=== PATIENT | female | born 2000 | race African-American/Black ===

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

== ENCOUNTER 2021-01-26 16:44 | Emergency (ER) | payer MEDICAID ==
[~2021-01-26] VITALS: Ht 157.5 cm; Wt 90.0 kg
[~2021-01-26 16:44] MED LIST changes: +ONDA4TAB12 PO
[2021-01-26 17:03] VITALS: BP 136/84
[2021-01-26 17:51] LABS: BACTERIA,URINE FEW /HPF (0-FEW); BILIRUBIN,URINE NEG (NEG); CLARITY,URINE TURBID; COLOR,URINE YELLOW; GLUCOSE,URINE NEG (NEG); NITRITE,URINE NEG (NEG); SQUAMOUS EPITHELIAL CELL,UR FEW /LPF; UROBILINOGEN,URINE 0.2 mg/dL (0.2 mg/dL); WBC,URINE >40 /HPF (0-4)
[2021-01-26 17:52] LABS: YEAST,URINE PRESENT /HPF
[2021-01-26] MEDS ORDERED: CEPH500T PO (18:13)
[2021-01-26] MEDS ORDERED: PHEN-318 PO (18:13)
[2021-01-26] MEDS ORDERED: FLUC150T PO (18:13)
[2021-01-26] MEDS ORDERED: CEPHALEXIN 250 MG CAPSULE PO ONE (18:15)
--- NOTE | 2021-01-26 18:15 | PHYS DOC ---
Past History Past Medical History: Asthma Additional Past Medical Histor: LACTOSE INTOLERANT Past Surgical History: No Surgical History Alcohol Use: None General Adult EDM: Chief Complaint: ABDOMINAL PAIN HPI: HPI: Patient is a 21-year-old female who presents to the ER with suprapubic pain, dysuria, hematuria, urinary frequency. Patient denies nausea, vomiting, diarrhea, fevers. Patient has a history of asthma. Patient's vital signs are stable. No treatment prior to arrival. Review of Systems: Review of Systems: 14 body systems of the review of systems have been reviewed. See HPI for pertinent positive and negative responses, otherwise all other systems are negative, nonpertinent or noncontributory Allergies: Allergies: Allergies Coded Allergies Type Severity Reaction Last Updated Verified lactose Allergy Intermediate 12/22/20 Yes Physical Exam: PE: Constitutional: Well developed, well nourished, no acute distress, non-toxic appearance. [] HENT: Normocephalic, atraumatic, bilateral external ears normal, oropharynx moist, no oral exudates, nose normal. [] Eyes: PERRL, EOMI, conjunctiva normal, no discharge. [] Neck: Normal range of motion, no tenderness, supple, no stridor. [] Cardiovascular:Heart rate regular rhythm, no murmur [] Lungs & Thorax: Bilateral breath sounds clear to auscultation [] Abdomen: Bowel sounds normal, soft, no tenderness, no masses, no pulsatile masses. [] Skin: Warm, dry, no erythema, no rash. [] Back: No tenderness, no CVA tenderness. [] Extremities: No tenderness, no cyanosis, no clubbing, ROM intact, no edema. [] Neurologic: Alert and oriented X 3, normal motor function, normal sensory function, no focal deficits noted. [] Psychologic: Affect normal, judgement normal, mood normal. [] Current Patient Data: Labs: Laboratory Tests Test 01/26/21 17:18 Urine Collection Type Unknown Urine Color Yellow Urine Clarity Turbid Urine pH 6.5 Urine Specific [place] >=1.030 Urine Protein 100 mg/dl (NEG-TRACE) Urine Glucose (UA) Neg mg/dL (NEG) Urine Ketones (Stick) Neg mg/dL (NEG) Urine Blood Large (NEG) Urine Nitrite Neg (NEG) Urine Bilirubin Neg (NEG) Urine Urobilinogen Dipstick 0.2 mg/dL (0.2 mg/dL) Urine Leukocyte Esterase Large (NEG) Urine RBC 3-5 /HPF (0-2) Urine WBC >40 /HPF (0-4) Urine Squamous Epithelial Cells Few /LPF Urine Bacteria Few /HPF (0-FEW) Urine Yeast Present /HPF Vital Signs: Vital Signs Date Time Temp Pulse Resp B/P (MAP) Pulse Ox O2 Delivery O2 Flow Rate FiO2 01/26/21 17:03 98.9 84 12 136/84 (101) 100 Room Air EKG: EKG: [] Radiology/Procedures: Radiology/Procedures: [] Heart Score: C/O Chest Pain: No Risk Factors: Risk Factors: DM, Current or recent (<one month) smoker, HTN, HLP, family history of CAD, obesity. Risk Scores: Score 0 - 3: 2.5% MACE over next 6 weeks - Discharge Home Score 4 - 6: 20.3% MACE over next 6 weeks - Admit for Clinical Observation Score 7 - 10: 72.7% MACE over next 6 weeks - Early Invasive Strategies Course & Med Decision Making: Course & Med Decision Making Pertinent Labs and Imaging studies reviewed. (See chart for details) [] Patient is a 21-year-old female being seen in the ER for suprapubic pain, dysuria, hematuria and urinary frequency. Urinalysis showed a urinary tract infection. Patient was given first dose of antibiotic in the ER. She is discharged home with an antibiotic, Pyridium and Diflucan because she is noted to have a yeast. Patient vies follow-up primary care provider. Advised to increase fluids and avoid bladder irritants. I discussed with patient all findings and diagnostic testing as well as the need to follow-up with PCP for further evaluation and treatment or return to the ER if any new or worsening symptoms. Strict return precautions were also discussed at length. Patient voiced understanding and agreement with the plan. Patient is hemodynamically stable at the time of disposition. Tosin Disclaimer: Tosin Disclaimer: This electronic medical record was generated, in whole or in part, using a voice recognition dictation system. Departure Departure: Impression: Primary Impression: Urinary tract infection Qualified Codes: N30.01 - Acute cystitis with hematuria Disposition: HOME / SELF CARE / HOMELESS Condition: GOOD Referrals: GUILLERMO ZEPEDA (PCP) Patient Instructions: Urinary Tract Infection Additional Instructions: You were seen in the ER today for suprapubic pain with dysuria, hematuria and urinary frequency. Your urinalysis was positive for urinary tract infection. You are being discharged home with an antibiotic. You were given your first dose in the ER. You are also being sent home with a prescription for a medication to help with the bladder spasm pains. You are also noted to have a yeast infection. You will be treated with Diflucan. Increase your fluids. Avoid bladder irritants like sugary beverages, caffeine and alcohol. Follow-up with your primary care provider tomorrow regarding your ER visit. If you develop worsening of your belly pain, intractable nausea or vomiting, high fevers refractory to treatment please return to the ER. EMERGENCY DEPARTMENT GENERAL DISCHARGE INSTRUCTIONS Thank you for coming to [facility] (ED) today and trusting us with you care. We trust that you had a positivie experience in our Emergency Department. If you wish to speak to the department management, you may call the director at [phone]. YOUR FOLLOW UP INSTRUCTIONS ARE FOLLOWS: 1. Do you have a private Doctor? If you do not have a private doctor, please ask for a resource list of physicians or clinics that may be able to assist you with follow up care. 2. The Emergency Physician has interpreted your x-rays. The X-Ray specialist will also review them. If there is a change in the findings, you will be notified in 48 hours when at all possible. 3. A lab test or culture has been done, your results will be reviewed and you will be notified if you need a change in treatment. ADDITIONAL INSTRUCTIONS AND INFORMATION: 1. Your care today has been supervised by a physician who is specially trained in emergency care. Many problems require more than one evaluation for a complete diagnosis and treatment. We recommend that you schedule your follow up appointment as recommended to ensure complete treatment of you illness or injury. If you are unable to obtain follow up care and continue to have a problem, or if your condition worsens, we recommend that you return to the ED. 2. We are not able to safely determine your condition over the phone nor are we able to give sound medical advice over the phone. For these safety reasons, if you call for medical advice we will ask you to come to the ED for further evaluation. 3. If you have any questions regarding these discharge instructions please call the ED at [phone]. SAFETY INFORMATION: In the interest of safety, wellness, and injury prevention; we encourage you to wear your sealbelt, if you smoke; quite smoking, and we encourage family to use a protective helmet for bicycling and other sporting events that present an increased risk for head injury. IF YOUR SYMPTOMS WORSEN OR NEW SYMPTOMS DEVELOP, OR YOU HAVE CONCERNS ABOUT YOUR CONDITION; OR IF YOUR CONDITION WORSENS WHILE YOU ARE WAITING FOR YOUR FOLLOW UP APPOINTMENT; EITHER CONTACT YOUR PRIMARY CARE DOCTOR, THE PHYSICIAN WHOSE NAME AND NUMBER YOU WERE GIVEN, OR RETURN TO THE ED IMMEDIATELY. Scripts Fluconazole (DIFLUCAN) 150 Mg Tablet 1 TAB PO ONCE for YEAST INFECTION for 1 Day, #1 TAB 0 Refills Prov: JEREMÍAS HARRIS APRN 01/26/21 Phenazopyridine Hcl (PYRIDIUM) 200 Mg Tablet 1 TAB PO TID for urinary discomfort for 3 Days, #9 TAB 0 Refills Prov: JEREMÍAS HARRIS APRN 01/26/21 Cephalexin (CEPHALEXIN) 500 Mg Tablet 1 TAB PO BID for UTI for 7 Days, #14 TAB 0 Refills Prov: JEREMÍAS HARRIS APRN 01/26/21 JEREMÍAS HARRIS APRN Jan 26, 2021 18:15
== END 2021-01-26 18:25 | disposition home or self-care (01) ==
LOC: ER 16:44
DX: N30.01 Acute cystitis with hematuria (principal); J45.909 Unspecified asthma, uncomplicated; Z91.011 Allergy to milk products
CPT/HCPCS: 81001; 87077; 87086; 87186; 99283

== ENCOUNTER 2021-08-02 18:27 | Emergency (ER) | payer MEDICAID ==
[~2021-08-02] VITALS: Ht 154.9 cm; Wt 96.4 kg
[~2021-08-02 18:27] MED LIST changes: +CEPH500T PO; +FLUC150T PO; +PHEN-318 PO
--- NOTE | 2021-08-02 19:08 | PHYS DOC ---
Past History Past Medical History: Asthma Additional Past Medical Histor: LACTOSE INTOLERANT Past Surgical History: No Surgical History Alcohol Use: None General Adult EDM: Chief Complaint: SKIN PROBLEM HPI: HPI: 21-year-old female presents with gluteal cyst or abscess. Patient states that she felt like there was a small spot toward the top of her gluteal cleft last week. She did not think much of it, but it has gotten much bigger over the last 2 to 3 days. It is now painful to sit for to walk. She has tried hot compresses without relief. She had an episode similar to this in 2013 and it spontaneously drained and resolved. The discomfort has gotten the point where she would like to have it drained. Denies fever or chills. She has no other complaints this time. Review of Systems: Review of Systems: Constitutional: Denies fever or chills Eyes: Denies change in visual acuity HENT: Denies nasal congestion or sore throat Respiratory: Denies cough or shortness of breath Cardiovascular: Denies chest pain or edema GI: Denies abdominal pain, nausea, vomiting, bloody stools or diarrhea : Denies dysuria Musculoskeletal: Denies back pain or joint pain Integument: Mass the top of the gluteal cleft Neurologic: Denies headache, focal weakness or sensory changes Endocrine: Denies polyuria or polydipsia Lymphatic: Denies swollen glands Psychiatric: Denies depression or anxiety Allergies: Allergies: Allergies Coded Allergies Type Severity Reaction Last Updated Verified lactose Allergy Intermediate 12/22/20 Yes Physical Exam: PE: Constitutional: Well developed, well nourished, obese, no acute distress, non- toxic appearance. [] HENT: Normocephalic, atraumatic, bilateral external ears normal, oropharynx moist, no oral exudates, nose normal. [] Eyes: PERRLA, EOMI, conjunctiva normal, no discharge. [] Neck: Normal range of motion, no tenderness, supple, no stridor. [] Cardiovascular: Heart rate regular rhythm, no murmur [] Lungs & Thorax: Bilateral breath sounds clear to auscultation [] Abdomen: Bowel sounds normal, soft, no tenderness, no masses, no pulsatile masses. [] Skin: 3 cm fluctuant mass at the top of the gluteal cleft, no obvious surrounding cellulitis. [] Back: No tenderness, no CVA tenderness. [] Extremities: No tenderness, no cyanosis, no clubbing, ROM intact, no edema. [] Neurologic: Alert and oriented X 3, normal motor function, normal sensory function, no focal deficits noted. [] Psychologic: Affect normal, judgement normal, mood normal. [] EKG: EKG: [] Radiology/Procedures: Radiology/Procedures: [] Heart Score: C/O Chest Pain: N/A Risk Factors: Risk Factors: DM, Current or recent (<one month) smoker, HTN, HLP, family history of CAD, obesity. Risk Scores: Score 0 - 3: 2.5% MACE over next 6 weeks - Discharge Home Score 4 - 6: 20.3% MACE over next 6 weeks - Admit for Clinical Observation Score 7 - 10: 72.7% MACE over next 6 weeks - Early Invasive Strategies Course & Med Decision Making: Course & Med Decision Making Pertinent Labs and Imaging studies reviewed. (See chart for details) The patient had a gluteal abscess. I performed an I&D. See note below for more details. The patient was given her first dose of Bactrim in the emergency room. I have discharged her with a prescription for 7 days. I given her directions about continue to encourage draining. She is stable for discharge at this time. [] Dragon Disclaimer: Tosin Disclaimer: This electronic medical record was generated, in whole or in part, using a voice recognition dictation system. Incision and Drainage Indication: 3 cm gluteal abscess Procedure: I obtained verbal consent from the patient for incision and drainage of her gluteal cleft abscess. The skin was thoroughly cleaned with alcohol. I made a 4 mm incision with a #11 blade scalpel. There was purulent material mixed with blood expressed. I used a sterile Q-tip shaft to break up all loculations. There was further expression of purulent material. No packing was used. A clean dressing was placed over the wound. Her tetanus is up-to-date. The patient tolerated the procedure well. Complications: None Departure Departure: Impression: Primary Impression: Abscess, gluteal cleft Disposition: HOME / SELF CARE / HOMELESS Condition: STABLE Referrals: GUILLERMO ZEPEDA (PCP) Patient Instructions: Abscess, [id number] Scripts Sulfamethoxazole/Trimethoprim (BACTRIM DS TABLET) 1 Each Tablet 1 TAB PO BID for abscess for 7 Days, #14 TAB 0 Refills Prov: YIFAN DANIELSON DO 08/02/21 YIFAN DANIELSON DO Aug 02, 2021 19:07
[2021-08-02] MEDS ORDERED: SULF1TAB24 PO (19:29)
[2021-08-02] MEDS ORDERED: SMZ/TMP 800/160MG TABLET. PO ONE (19:30)
[2021-08-02 19:38] VITALS: BP 124/62
== END 2021-08-02 19:40 | disposition home or self-care (01) ==
LOC: ER 18:27
DX: L02.31 Cutaneous abscess of buttock (principal); J45.909 Unspecified asthma, uncomplicated; Z91.011 Allergy to milk products
CPT/HCPCS: 10060; 99283

== ENCOUNTER 2021-09-30 17:22 | Emergency (ER) | payer MEDICAID ==
[~2021-09-30] VITALS: Ht 154.9 cm; Wt 96.4 kg
[~2021-09-30 17:22] MED LIST changes: +SULF1TAB24 PO
[2021-09-30 17:54] VITALS: BP 128/83
--- NOTE | 2021-09-30 18:07 | PHYS DOC ---
Past History Past Medical History: Asthma Additional Past Medical Histor: LACTOSE INTOLERANT (JEREMÍAS HARRIS APRN) Past Surgical History: No Surgical History (JEREMÍAS HARRIS APRN) Alcohol Use: None (JEREMÍAS HARRIS APRN) General Adult EDM: Chief Complaint: ABDOMINAL PAIN HPI: HPI: Patient is a 21-year-old female who presents to the emergency department for suprapubic pain and bilateral flank pain that started last night. Patient reports that she has a history of UTI and this does feel similar. Patient states that her menstrual cycle started September 25 and typically after her menses ends which was yesterday she takes a hot bath and she used a bath bomb. She also took a cranberry pill and Motrin this morning. She reports feeling suprapubic pressure when she tries to urinate as well as frequency with nausea. She denies any vomiting or fevers or burning with urination. (JEREMÍAS HARRIS APRN) Review of Systems: Review of Systems: Constitutional: See HPI GI: See HPI : See HPI Musculoskeletal: See HPI (JEREMÍAS HARRIS APRN) Allergies: Allergies: Allergies Coded Allergies Type Severity Reaction Last Updated Verified lactose Allergy Intermediate 12/22/20 Yes (JEREMÍAS HARRIS APRN) Physical Exam: PE: Constitutional: Well developed, well nourished, no acute distress, non-toxic a ppearance. [] HENT: Normocephalic, atraumatic, bilateral external ears normal, oropharynx moist, no oral exudates, nose normal. [] Eyes: PERRL, EOMI, conjunctiva normal, no discharge. [] Neck: Normal range of motion, no tenderness, supple, no stridor. [] Cardiovascular:Heart rate regular rhythm, no murmur [] Lungs & Thorax: Bilateral breath sounds clear to auscultation [] Abdomen: Bowel sounds normal, soft, suprapubic tenderness with palpation, negative Moore sign, no abdominal guarding or rigidity no masses, no pulsatile masses. [] Skin: Warm, dry, no erythema, no rash. [] Back: No tenderness, no CVA tenderness. [] Extremities: No tenderness, no cyanosis, no clubbing, ROM intact, no edema. [] Neurologic: Alert and oriented X 3, normal motor function, normal sensory function, no focal deficits noted. [] Psychologic: Affect normal, judgement normal, mood normal. [] (JEREMÍAS HARRIS APRN) Current Patient Data: Labs: Laboratory Tests Test 09/30/21 17:50 Urine Collection Type Unknown Urine Color Red Urine Clarity Cloudy Urine pH Urine Specific [place] Urine Protein Urine Glucose (UA) mg/dL Urine Ketones (Stick) mg/dL Urine Blood Urine Nitrite Urine Bilirubin Urine Urobilinogen Dipstick mg/dL Urine Leukocyte Esterase Urine RBC >40 /HPF Urine WBC 1-4 /HPF Urine Squamous Epithelial Cells Occ /LPF Urine Bacteria Few /HPF Vital Signs: Vital Signs Date Time Temp Pulse Resp B/P (MAP) Pulse Ox O2 Delivery O2 Flow Rate FiO2 09/30/21 17:54 98.7 67 16 128/83 (98) 100 Room Air (JEREMÍAS HARRIS APRN) EKG: EKG: [] (JEREMÍAS HARRIS APRN) Radiology/Procedures: Radiology/Procedures: []PROCEDURE: CT ABDOMEN PELVIS WO CONTRAST EXAMINATION: CT ABDOMEN+PELVIS WO CLINICAL HISTORY: Suprapubic and flank pain. TECHNIQUE: Imaging of the abdomen and pelvis was performed without intravenous contrast using standard technique, scanning from just above the dome of the diaphragm to the symphysis pubis. Unenhanced imaging is limited for the evaluation of some intra-abdominal and pelvic pathology. CT Dose Reduction Employed: One or more of the following individualized dose reduction techniques were utilized for this examination: 1. Automated exposure control 2. Adjustment of the mA and/or kV according to patient size 3. Use of iterative reconstruction technique. COMPARISON: None FINDINGS: Visualized heart and lungs unremarkable. Nondistended gallbladder. Liver, gallbladder, spleen, adrenal glands, and kidne ys unremarkable. Minimally distended urinary bladder suboptimally evaluated. Retroverted uterus and ovaries unremarkable on limited evaluation. Mild fluid in the rectouterine fossa, possibly physiologic. No dilated bowel. Appendix within normal limits. No abdominal aortic or iliac artery aneurysm. IMPRESSION: No evidence of acute abdominopelvic abnormality. Electronically signed by: Harish Galan DO (09/30/2021 8:28 PM) [facility] DICTATED AND SIGNED BY: HARISH GALAN DO DATE: 09/30/212017 CC: JEREMÍAS HARRIS APRN; GUILLERMO ZEPEDA ~ (JEREMÍAS HARRIS APRN) Heart Score: C/O Chest Pain: N/A Risk Factors: Risk Factors: DM, Current or recent (<one month) smoker, HTN, HLP, family history of CAD, obesity. Risk Scores: Score 0 - 3: 2.5% MACE over next 6 weeks - Discharge Home Score 4 - 6: 20.3% MACE over next 6 weeks - Admit for Clinical Observation Score 7 - 10: 72.7% MACE over next 6 weeks - Early Invasive Strategies (JEREMÍAS HARRIS APRN) Course & Med Decision Making: Course & Med Decision Making Pertinent Labs and Imaging studies reviewed. (See chart for details) [] Presents to the emergency department for suprapubic and bilateral flank abdominal pain with nausea, urinary pressure pain and frequency. Patient r eports that this feels like a previous UTI. Urinalysis performed in the ER. Patient's urinalysis does show 1-4 white blood cells, few bacteria and occasional squamous cells. Patient's urinalysis is too bloody to test for leukocytes or nitrates, she will be treated for UTI with abx. CT abdomen and pelvis performed which showed no acute findings. Blood work including lipase was obtained in the emergency department and they are currently pending at this time 2135. I discussed patients case with supervising physician and he will assume patient care due to shift change 2149. (JEREMÍAS HARRIS APRN) Dragon Disclaimer: Dragsteve Disclaimer: This electronic medical record was generated, in whole or in part, using a voice recognition dictation system. (JEREMÍAS HARRIS APRN) Departure Departure: Impression: Primary Impression: Urinary tract infection Qualified Codes: N30.01 - Acute cystitis with hematuria Disposition: HOME / SELF CARE / HOMELESS Condition: GOOD Referrals: GUILLERMO ZEPEDA (PCP) Patient Instructions: Urinary Tract Infection Additional Instructions: You are seen in the emergency department today for suprapubic pain. You were noted to have a urinary tract infection. This will be treated with an antibiotic. Please start and finish the antibiotic completely. Increase your fluids. Follow-up with your primary care provider tomorrow regarding your ER visit. Return to the emergency department if you develop worsening of your pain, high fevers refractory to treatment, intractable nausea or vomiting. Scripts Cephalexin (KEFLEX) 500 Mg Capsule 1 CAP PO BID for uti for 7 Days, #14 CAP 0 Refills Prov: JEREMÍAS HARRIS APRN 09/30/21 Dragon Disclaimer This chart was dictated in whole or in part using Voice Recognition software in a busy, high-work load, and often noisy Emergency Department environment. It may contain unintended and wholly unrecognized errors or omissions. (TONG ANAND MD) Attending Signature Attending Signature I have participated in the care of this patient and I have reviewed and agree with all pertinent clinical information above including history, exam, and recommendations. (TONG ANAND MD) JEREMÍAS HARRIS APRN September 30, 2021 18:07 TONG ANAND MD September 30, 2021 23:57
[2021-09-30 18:31] LABS: CLARITY,URINE CLOUDY; COLOR,URINE RED; RBC,URINE >40 /HPF (0-2)
[2021-09-30 18:32] LABS: BACTERIA,URINE FEW /HPF (0-FEW); SQUAMOUS EPITHELIAL CELL,UR OCC /LPF
--- NOTE | 2021-09-30 20:30 | RAD ---
EXAMINATION: CT ABDOMEN+PELVIS WO CLINICAL HISTORY: Suprapubic and flank pain. TECHNIQUE: Imaging of the abdomen and pelvis was performed without intravenous contrast using standar d technique, scanning from just above the dome of the diaphragm to the symphysis pubis. Unenhanced i maging is limited for the evaluation of some intra-abdominal and pelvic pathology. CT Dose Reduction Employed: One or more of the following individualized dose reduction techniques wer e utilized for this examination: 1. Automated exposure control 2. Adjustment of the mA and/or kV ac cording to patient size 3. Use of iterative reconstruction technique. COMPARISON: None FINDINGS: Visualized heart and lungs unremarkable. Nondistended gallbladder. Liver, gallbladder, spleen, adrenal glands, and kidneys unremarkable. Minimally distended urinary bladder suboptimally evaluated. Retroverted uterus and ovaries unremarkab le on limited evaluation. Mild fluid in the rectouterine fossa, possibly physiologic. No dilated bowel. Appendix within normal limits. No abdominal aortic or iliac artery aneurysm. IMPRESSION: No evidence of acute abdominopelvic abnormality. Electronically signed by: Harish Jorge DO (09/30/2021 8:28 PM) [facility]
[2021-09-30] MEDS ORDERED: CEPH500C PO (21:38)
[2021-09-30 21:59] LABS: BASO % 1 % (0-3); EOS # 0.1 x10^3/uL (0.0-0.7); EOS % 2 % (0-3); HEMATOCRIT 37.3 % (36.0-47.0); HEMOGLOBIN 12.8 g/dL (12.0-15.5); LYMPH # 3.1 x10^3/uL (1.0-4.8); LYMPH % 35 % (24-48); MEAN CORPUSCULAR HEMOGLOBIN 30 pg (25-35); MEAN CORPUSCULAR HGB CONC 34 g/dL (31-37); MEAN CORPUSCULAR VOLUME 87 fL (79-100); MONO # 0.7 x10^3/uL (0.0-1.1); MONO % 7 % (0-9); NEUT # 4.9 x10^3uL (1.8-7.7); NEUT % 55 % (31-73); PLATELET COUNT 425 x10^3/uL (140-400); RED BLOOD COUNT 4.29 x10^6/uL (3.50-5.40); WHITE BLOOD COUNT 8.9 x10^3/uL (4.0-11.0)
[2021-09-30 22:01] LABS: CALCIUM 8.8 mg/dL (8.5-10.1); CREATININE 0.7 mg/dL (0.6-1.0); GFR 129.1; POTASSIUM 3.6 mmol/L (3.5-5.1)
[2021-09-30 22:05] LABS: U PREG PATIENT NEGATIVE (NEG)
[2021-09-30 22:10] LABS: ALBUMIN 3.6 g/dL (3.4-5.0); ALBUMIN/GLOBULIN RATIO 0.9 (1.0-1.7); TOTAL BILIRUBIN 0.4 mg/dL (0.2-1.0); TOTAL PROTEIN 7.5 g/dL (6.4-8.2)
== END 2021-09-30 22:40 | disposition short-term general hospital (02) ==
LOC: ER 17:22
DX: N30.01 Acute cystitis with hematuria (principal); J45.909 Unspecified asthma, uncomplicated; Z91.011 Allergy to milk products
CPT/HCPCS: 36415; 74176; 80053; 81001; 81025; 83690; 85025; 99285